=== PATIENT | male | born 1985 | race African-American/Black ===

== ENCOUNTER 2022-01-02 17:51 | Emergency (ER) | payer BC, OTHER ==
[2022-01-02] MEDS ORDERED: KETOROLAC TROMETHAMINE 60 MG/2 ML VIAL IM ONE (18:14)
[2022-01-02 18:28] VITALS: BP 114/75; PULSE 72; TEMP 98.8; BMI 33.0
[2022-01-02] MEDS ORDERED: KETOROLAC TROMETHAMINE 60 MG/2 ML VIAL ONE (18:29)
== END 2022-01-02 18:53 | disposition home or self-care (01) ==
LOC: FER 17:51
PROC: 3E0233Z Introduction of Anti-inflammatory into Muscle, Percutaneous Approach (ICD-10-PCS; principal; 2022-01-02)
DX: S39.012A Strain of muscle, fascia and tendon of lower back, initial encounter (principal); X50.0XXA Overexertion from strenuous movement or load, initial encounter
CPT/HCPCS: 99283-25